=== PATIENT | male | born 1960 | race Caucasian/White ===

== ENCOUNTER 2022-12-26 13:51 | Emergency (ER) | payer MEDICAID ==
[~2022-12-26] VITALS: Ht 177.8 cm; Wt 68.0 kg
--- NOTE | 2022-12-26 13:58 | NUR ---
BOSTON R83 w/ c/o ETOH. Pt manifesting emotional distress and is requesting to speak with the SW. Sofia ESPINOSA made aware. Seen by Dr. Rm for MSE.
--- NOTE | 2022-12-26 14:00 | NUR ---
Social work consult was requested for a patient in the emergency room. Patient is 62-year-old male, and he is alert and oriented X4. Patient presents with depressed mood and congruent affect. Patient states he does not have a primary contact. Patient states he has been homeless for two years and FRANCISCA provided the patient with resources for [facility] [address] [place] [address] ([phone]) and [facility] [address] [facility] [address] ([phone]). FRANCISCA gave resources for [facility] [address] [facility] [address]. Patient states he has a history of alcohol abuse, and the alcohol level is 417. FRANCISCA provided the patient with resources for substance abuse from [facility] [address] [facility] [address] ([phone]), [facility] [address] [facility] [address] ([phone]), and [facility] [address] [place] [address] ([phone]). Patient appears unmotivated for treatment. Patient states he has a history of depression and anxiety and FRANCISCA provided the patient with mental health resource for [facility] [address] [place] [address] ([phone]). Patient denies suicidal ideation and denies homicidal ideation. Patient states he is open to going to [facility] and FRANCISCA contacted [facility] ([phone]) and faxed him the patients face sheet (fax: [phone]). FRANCISCA informed patients nurse, Sol and Dr. Rm.
[2022-12-26 14:11] LABS: HEMATOCRIT 47.2 % (36.7-47.1); MEAN CORPUSCULAR HEMOGLOBIN 30.9 uug (23.8-33.4); MEAN CORPUSCULAR VOLUME 92.9 fL (73.0-96.2); PLATELET COUNT (AUTO) 138 K/uL (152-348)
[2022-12-26 14:22] LABS: CREATININE 1.4 mg/dL (0.6-1.3); POTASSIUM 3.6 mmol/L (3.5-5.1)
[2022-12-26 14:35] LABS: BILIRUBIN,TOTAL 0.8 mg/dL (0.2-1.0); TOTAL PROTEIN, SERUM 8.6 g/dL (6.4-8.2)
[2022-12-26 14:40] LABS: ETHANOL 417 MG/DL (0-0)
--- NOTE | 2022-12-26 14:54 | NUR ---
Pt cannot provide urine sample, stated "I can't", will return later for urine sample.
--- NOTE | 2022-12-26 15:22 | NUR ---
Lab called: Ethanol = [phone]. notified.
--- NOTE | 2022-12-26 15:32 | NUR ---
[facility] from [facility] fax # [phone].
[2022-12-26 16:14] LABS: *AMPHETAMINE, URINE NEGATIVE (NEGATIVE); *CANNABINOID, URINE NEGATIVE (NEGATIVE); *COCCAINE, URINE NEGATIVE (NEGATIVE); *OPIATE, URINE NEGATIVE (NEGATIVE); *PHENCYCLIDINE SCREEN,URINE NEGATIVE (NEGATIVE)
[2022-12-26 16:45] LABS: *BILIRUBIN,URIN NEGATIVE (NEGATIVE); *BLOOD, URINE 2+ (NEGATIVE); *CLARITY,URINE SLIGHTLY CLOUDY (CLEAR); *COLOR,URINE YELLOW (YELLOW); *KETONES,URINE NEGATIVE (NEGATIVE); *UROBILINOGEN,URINE 0.2 E.U./dl (NORMAL); LEUKOCYTE ESTERASE ,URINE 1+ (NEGATIVE); NITRITE, URINE NEGATIVE (NEGATIVE); UGLUCOSE NEGATIVE (NEGATIVE)
--- NOTE | 2022-12-26 16:55 | NUR ---
Lab called, Urine Protein = 3+.
[2022-12-26 17:08] LABS: BACTERIA,URINE MANY /HPF (NONE SEEN); RBC,URINE 50-80 /HPF (0-3); SQUAMOUS EPITHELIAL CELL,UR MODERATE /HPF (NONE SEEN)
[2022-12-26 17:19] LABS: ACETAMINOPHEN < 10.0 ug/mL (10-30)
--- NOTE | 2022-12-26 17:30 | NUR ---
Faxed pt's clinicals to [facility] from [facility].
--- NOTE | 2022-12-26 19:28 | NUR ---
Endorsed to Tammy KEEN.
--- NOTE | 2022-12-26 20:07 | NUR ---
faxed HPI, Med. clearance. and facesheet to socal attn: to [facility]
--- NOTE | 2022-12-26 21:26 | NUR ---
Patient discharged to home in stable condition. Written and verbal after care instructions given. Patient verbalizes understanding of instructions. Stressed follow up or return to ER for worsening s/s.
[2022-12-26 21:27] VITALS: BP 112/78
== END 2022-12-26 21:28 | disposition home or self-care (01) ==
LOC: ER 13:51
DX: M54.9 Dorsalgia, unspecified (principal); R07.9 Chest pain, unspecified; Z59.02 Unsheltered homelessness; E46 Unspecified protein-calorie malnutrition; Z68.21 Body mass index [BMI] 21.0-21.9, adult; F32.A Depression, unspecified; Z20.822 Contact with and (suspected) exposure to COVID-19; F10.129 Alcohol abuse with intoxication, unspecified
CPT/HCPCS: 36415; 71045; 84484; 85025; 93005; A4663; G0480

== ENCOUNTER 2022-12-26 22:15 | Emergency (ER) | payer MEDICAID ==
[~2022-12-26] VITALS: Ht 177.8 cm; Wt 68.0 kg
--- NOTE | 2022-12-26 22:30 | NUR ---
After being triaged, patient was place in the waiting room due to no beds available in the ER.
--- NOTE | 2022-12-27 03:20 | NUR ---
Patient was seen in the waiting room by ERMD due to no beds in the ER. Patient had no medical complaint at this time. Only wants bus token to get home.
--- NOTE | 2022-12-27 04:37 | NUR ---
Patient was given a TAP card. Gave homeless resource to patient. Refused to wait for social media strategist to have housing placement.
== END 2022-12-27 04:41 | disposition home or self-care (01) ==
LOC: ER 22:20
DX: Z71.88 Encounter for counseling for socioeconomic factors (principal); F32.A Depression, unspecified; Z59.00 Homelessness unspecified; Z75.4 Unavailability and inaccessibility of other helping agencies
CPT/HCPCS: A4663